=== PATIENT | female | born 1955 ===

== ENCOUNTER 2023-04-28 14:14 | Outpatient (CLI) | payer MEDICARE, SELFPAY ==
--- NOTE | ~2023-04-28 | MM_ITS ---
EXAMINATION: MM screening [facility] BI w jeronimo HISTORY: Screening mammogram TECHNIQUE: Craniocaudal and mediolateral oblique 3-D tomosynthesis images were obtained and synthetic 2-D images were generated. CAD analysis was submitted and interpreted. COMPARISON: 12/21/2018, 01/17/2016 bilateral screening mammogram examinations BREAST PARENCHYMAL COMPOSITION: The breasts are heterogeneously dense, which may obscure small masses . FINDINGS: There is a biopsy marker on the right; history of prior benign right breast biopsy. There is a new suspicious irregular high density approximately 7 x 10 mm mass lesion in the posterior lower inner left breast. Diagnostic left mammogram and left breast ultrasound examination are recomm ended. IMPRESSION: 1. New suspicious irregular high density 7 x 10 mm mass in posterior lower inner left breast 2. Diagnostic left mammogram and left breast ultrasound examination are recommended. BI-RADS Category 4: Suspicious abnormality; biopsy should be considered Reviewed, dictated and finalized at location A. MANAGER PUBLIC IMPRESSION: 1. New suspicious irregular high density 7 x 10 mm mass in posterior lower inne r left breast 2. Diagnostic left mammogram and left breast ultrasound examination are recomme nded. BI-RADS Category 4: Suspicious abnormality; biopsy should be considered
== END 2023-04-28 14:15 | disposition home or self-care (01) ==
PROVIDERS: PCP Family Medicine; Referring Provider Family Medicine Sports Medicine; Visit Provider Family Medicine
DX: Z12.31 Encounter for screening mammogram for malignant neoplasm of breast (principal); R92.8 Other abnormal and inconclusive findings on diagnostic imaging of breast
CPT/HCPCS: 77063; 77067

== ENCOUNTER 2023-05-26 10:06 | Outpatient (CLI) | payer MEDICARE, SELFPAY ==
--- NOTE | ~2023-05-26 | MMUS_ITS ---
EXAMINATION: MM diagnostic prince LT w jeronimo, US breast LT limited HISTORY: Left breast mass on screening mammogram TECHNIQUE: Additional 3-D tomosynthesis images of the left breast were performed and synthetic 2-D im ages were generated. CAD analysis was submitted and interpreted. High resolution limited left breast ultrasound was performed. COMPARISON: 04/28/2023, 12/21/2018, 01/17/2016 FINDINGS: MAMMOGRAPHIC FINDINGS: There is a 9 mm x 5 mm irregular, high density mass with spiculated margins in the posterior third of the lower inner breast at the 8:00 location, 8 cm from the nipple. There is surrounding architectura l distortion. No associated calcification is identified. ULTRASOUND: There is an 8 mm x 5 mm hypoechoic mass with angular margins, posterior acoustic shadowing, and no de finite internal vascularity at 8:00 location, 8 cm from the nipple. IMPRESSION: 1. Suspicious left breast mass. 2. Ultrasound-guided biopsy is recommended. BI-RADS category 5, highly suggestive of malignancy. Reviewed, dictated and finalized at location A. FACTURING ENGINEER SUPERVISOR IMPRESSION: 1. Suspicious left breast mass. 2. Ultrasound-guided biopsy is recommended. BI-RADS category 5, highly suggestive of malignancy.
== END 2023-05-26 10:07 | disposition home or self-care (01) ==
LOC: ANHIMG 10:08
DX: R92.8 Other abnormal and inconclusive findings on diagnostic imaging of breast (principal)
CPT/HCPCS: 76642; 77061; 77065; G0279

== ENCOUNTER 2023-06-17 09:57 | Outpatient (CLI) | payer MEDICARE, SELFPAY ==
--- NOTE | ~2023-06-17 | MMUS_ITS ---
EXAMINATION: US breast biopsy LT w image, MM post biopsy invasive LT DATE: 06/17/2023 11:30 (accession [id number]), 06/17/2023 11:52 (accession [id number]) INDICATION: Indeterminate mass of the lower inner left breast Ultrasound-guided core biopsy is reques lisbeth to evaluate for malignancy. TECHNIQUE AND FINDINGS: The risks and potential benefits of the procedure were discussed with the patient including bleeding and infection. A time out was performed. The skin of the left breast was prepared and draped in usual sterile fashion. 1% lidocaine was used for superficial anesthesia. 1% lidocaine with epinephrine was used for deep anesthesia. A vacuum-assisted biopsy needle was advanced through to the outer edge of the region of interest from an inferolateral approach utilizing sonographic guidance. A total of five tissue core samples were o btained through the lesion. A tissue marker clip was then placed at the biopsy site. Hemostasis was a chieved. A sterile bandage was applied. The patient tolerated procedure well and there was no evidence of immediate complication. The patient was given verbal instructions to return to the Emergency Department in the event of severe breast pa in or rapid breast enlargement. A two view left breast mammogram was obtained to document tissue bud er clip placement. IMPRESSION: 1. Successful ultrasound-guided vacuum-assisted biopsy of left breast mass with tissue marker placeme nt. Reviewed, dictated and finalized at location A. ON DESIGNER IMPRESSION: 1. Successful ultrasound-guided vacuum-assisted biopsy of left breast mass with tissue marker placement.
== END 2023-06-17 09:58 | disposition home or self-care (01) ==
PROVIDERS: Visit Provider Family Medicine
DX: C50.912 Malignant neoplasm of unspecified site of left female breast (principal)
CPT/HCPCS: 19083; 88305; 88342; A4648